=== PATIENT | female | born 1955 ===

== ENCOUNTER → 2017-09-19 09:02 | Outpatient (CLI) | payer OTHER ==
[~2017-09-19 09:02] MED LIST: ASA81 MG PO; CATAFLAN PO; CIPROFLOXACIN750 MG PO; CLONAZEPAM1 MG PO; DOCUSATE SODIU100 MG PO; GABAPENTIN800 MG PO; PERCOCET 5/3251 TAB PO; VASOTEC10 MG PO; ZANTAC150 M3 PO
== END | disposition home or self-care (01) ==
LOC: EKG 09:02
DX: C50.911 Malignant neoplasm of unspecified site of right female breast (principal)

== ENCOUNTER 2017-09-29 16:00 | Day surgery (SDC) | payer OTHER ==
[~2017-09-29] VITALS: Ht 157.5 cm; Wt 63.5 kg
[~2017-09-29 16:00] MED LIST changes: +NEURONTIN800 MG PO; +ZOCOR20 MG PO
== END 2017-09-29 20:30 | disposition home or self-care (01) ==
LOC: CIR.AMB 16:00
DX: D05.81 Other specified type of carcinoma in situ of right breast (principal); N62 Hypertrophy of breast